=== PATIENT | female | born 1955 | race Caucasian/White ===

== ENCOUNTER 2017-07-06 13:59 | Inpatient (IN) | payer OTHER, MEDICARE ==
[~2017-07-06] VITALS: Ht 154.9 cm; Wt 77.3 kg
--- NOTE | ~2017-07-06 | HP ---
History And Physical [place] [id number] [facility] [place]. [address] NAME: SHANELL DAVILA : 57 STATUS : ADM IN [facility]#: [id number] AGE: 61 ADM/REG DATE : 07/06/17 MR#: [id number] REPORT SERV DATE: 07/09/17 DICTATED BY: GERTRUDE DOUGLAS DATE: 07/08/17 REPORT STATUS : Draft TRANSCRIBED BY: MODL DATE: 07/08/17 DATE OF ADMISSION: 07/06/2017 ADMISSION DIAGNOSIS: Acute stroke. HISTORY OF PRESENT ILLNESS: Mrs. Davila is a 61-year-old female with a past medical history of known atrial fibrillation, who presented to the emergency room with difficulty in speech. She was first seen by Neurology. With regard to the patient taking her medications, there is some discussion of whether she has full compliance. She does see our Cardiology team. Upon admission to the emergency room, she was noted to be hypertensive; however, CT scan did not show any acute hemorrhagic stroke and the patient received tPA. There was somewhat of a delay due to the patient's inability to speak and give a good history. However, by the time Critical Care saw the patient in the ER, the patient's symptoms have already begun to improve. There were no acute thrombotic findings on CTA. Otherwise, no further complaints. PAST MEDICAL HISTORY: Significant history for kidney transplantation, coronary artery disease, atrial fibrillation, hyperlipidemia, end-stage renal disease, sleep apnea, history of breast cancer, and reflux. MEDICATIONS: Medication list reviewed. Some of the patient's medications are aspirin, Coreg, and losartan. However, we are still trying to compile the rest of the patient's medication list as the patient cannot verbalize the list nor does her know. ALLERGIES: NO KNOWN DRUG ALLERGIES. SOCIAL HISTORY: The patient is currently , no significant recent smoking or drinking. FAMILY HISTORY: No significant family history that we are aware of at this moment in time. REVIEW OF SYSTEMS: All pertinent review of systems reviewed and is otherwise negative. PHYSICAL EXAMINATION: VITAL SIGNS: Blood pressure currently in the 180s, normal respiratory rate, oxygen saturation greater than 95% on room air. GENERAL: The patient is alert and oriented x1. Unable to give full speech. HEENT: No JVD noted. PULMONARY: Lungs are clear to auscultation bilaterally. CARDIAC: Heart rate regular, no murmurs heard. ABDOMEN: Soft, nontender, nondistended. EXTREMITIES: No cyanosis. Good pulses bilaterally. NEUROLOGIC: The patient is able to move upper and lower extremity against force. Sensation is intact. No cranial nerve abnormalities, other than an expressive aphasia. LABORATORY DATA: Laboratory examination has been reviewed. History And Physical [address] [place]. [address] NAME: SHANELL DAVILA : 57 STATUS : ADM IN PAT#: [id number] AGE: 61 ADM/REG DATE : 07/06/17 MR#: [id number] REPORT SERV DATE: 07/09/17 DICTATED BY: GERTRUDE DOUGLAS DATE: 07/08/17 REPORT STATUS : Draft TRANSCRIBED BY: MODUsha DATE: 07/08/17 RADIOLOGY STUDIES: CT scan showed no acute hemorrhagic stroke. MRI was done, which did not show any clot. However, there was an acute stroke in the left MCA. ASSESSMENT AND PLAN: Mrs. Davila is a 61-year-old female with a past medical history noted above, who has an acute stroke. 1. Acute left middle cerebral artery stroke and the history of atrial fibrillation. The patient has been given tPA and already neurological improvements have been noted. The patient will have evaluation by her rack carrier and service secretary along with Neurology on board. Treatment of her paroxysmal atrial fibrillation. Otherwise, we will follow the standard post stroke tPA order set. 2. Coronary artery disease: As noted above. 3. Atrial fibrillation, paroxysmal: As noted above. 4. Hyperlipidemia: As noted above. 5. FEN: The patient is currently n.p.o. 6. Disposition: The patient is to be transferred to the intensive care unit from the ER. HFQ/MODL Gertrude Douglas MD / [id number] CC: MD Will Dudley M.D.
--- NOTE | ~2017-07-06 | PRECARD ---
H&P [address] [place]. [address] NAME: SHANELL DAVILA : 57 STATUS : ADM IN [facility]#: [id number] AGE: 61 ADM/REG DATE : 07/06/17 MR#: [id number] REPORT SERV DATE: 07/06/17 DICTATED BY: EFRAIN BENITEZ DATE: 07/06/17 REPORT STATUS : Draft TRANSCRIBED BY: CAROLINE DATE: 07/06/17 DATE OF ADMISSION: 07/06/2017 HISTORY OF PRESENT ILLNESS: Ms. Hina Davila is a 61-year-old woman admitted with an acute left MCA stroke. Medical records are not yet available. Apparently, Ms. Davila follows Dr. Guzman with atrial fibrillation. She has had two renal transplants, the patient and family are uncertain the etiology of her renal failure. Today, she was doing well, at about 1215 hours today she developed expressive aphasia. Her head CT showed no acute stroke, her MRI showed an acute left MCA stroke. She did receive tPA perfusion therapy at 1520 hours. At this time, she is doing well. She denies any discomfort. Her expressive aphasia is slowly improving. The patient's is uncertain about history of atrial fibrillation on my questioning. The patient's denied history of hypertension, diabetes, heart failure, or prior stroke. PAST MEDICAL HISTORY: Renal transplant. MEDICINES: Epo injection, vitamin D, mycophenolate, sirolimus, carvedilol, torsemide, rosuvastatin, potassium, aspirin. FAMILY HISTORY: Difficult to obtain. SOCIAL HISTORY: Difficult to obtain. PHYSICAL EXAMINATION: VITAL SIGNS: Heart rate about 63, telemetry intermittent sinus rhythm. Pressures about 180/80. GENERAL: In no acute distress, she has expressive aphasia with right-sided facial droop. LUNGS: Clear with good breath sounds. CARDIOVASCULAR: No murmurs or rub. ABDOMEN: No obvious mass. EXTREMITIES: Have no edema. Telemetry demonstrates sinus rhythm. EKG, sinus rhythm without ischemia. BUN 46, creatinine 2.07, hematocrit 36%. ASSESSMENT: Ms. Davila is a 61-year-old woman with an acute stroke, treated with tPA reperfusion therapy. H&P [address] [place]. [address] NAME: SHANELL DAVILA : 57 STATUS : ADM IN PAT#: [id number] AGE: 61 ADM/REG DATE : 07/06/17 MR#: [id number] REPORT SERV DATE: 07/06/17 DICTATED BY: EFRAIN BENITEZ DATE: 07/06/17 REPORT STATUS : Draft TRANSCRIBED BY: CAROLINE DATE: 07/06/17 There is reported history of atrial fibrillation, but no definite history of diabetes, prior stroke, or heart failure. I presume she has hypertension given her two renal transplants and a current blood pressure, with atrial fibrillation, hypertension, and female gender certainly with a stroke, she would be a candidate for long-term anticoagulation. I will discuss with Neurology team when to begin oral anticoagulant in the best approach, be that DOAC or warfarin anticoagulation. I will obtain echocardiogram as well to look for valvular heart disease. ELIESER/CAROLINE Efrain Benitez M.D. / [id number] CC: Gertrude Douglas MD
--- NOTE | ~2017-07-06 | DS ---
Discharge Summary [facility] [address] [place]. [address] NAME: SHANELL LUIS : 57 STATUS : DIS IN PAT#: [id number] AGE: 61 ADM/REG DATE : 07/06/17 MR#: [id number] REPORT SERV DATE: 07/11/17 DICTATED BY: AMY CEDILLO DATE: 07/10/17 REPORT STATUS : Draft TRANSCRIBED BY: CAROLINE DATE: 07/10/17 ADMISSION DATE: 07/06/2017 DISCHARGE DATE: 07/10/2017 DISCHARGE DIAGNOSES: 1. Left middle cerebral artery cerebrovascular accident, status post tPA without deficits. 2. Paroxysmal atrial fibrillation. 3. Hypertension. 4. Chronic kidney disease, stage III. 5. Anemia of chronic kidney disease. 6. Chronic immunosuppression, status post renal transplant. 7. Coronary artery disease. 8. Diabetes type 2 with a hemoglobin A1c of 7.3. DISCHARGE MEDICATIONS: Include: 1. Norvasc 5 mg p.o. daily. 2. Eliquis 5 mg p.o. b.i.d. 3. Lipitor 80 mg at bedtime. 4. Carvedilol 25 mg p.o. b.i.d. 5. Cozaar 100 mg p.o. daily. 6. Mycophenolate 180 mg p.o. b.i.d. 7. Protonix 40 mg p.o. daily. 8. Sirolimus 0.5 mg p.o. q.48 hours. 9. Tylenol 1000 mg p.o. q.6 hours p.r.n. pain. 10.Ventolin HFA one to two puffs inhaled q.4 h. p.r.n. 11.Demadex 20 mg p.o. daily p.r.n. edema, hold for the next 48 hours. 12.Procrit 70686 units subcu every 28 days. 13.Vitamin D 1000 units p.o. daily. DISPOSITION AND FOLLOWUP: The patient medically stable for discharge. Follow up with primary care physician in one week. The patient on control for diabetes with diet and exercise. Hemoglobin A1c of 7.3. On followup, may discuss adding oral antihyperglycemic versus lifestyle modification. Follow up with Neurology and Nephrology as directed. Instructed to hold any diuretics for the next 48 hours. On followup with primary care physician, can recheck renal function for stability. HISTORY AND PHYSICAL: Per initial assessment. DISCHARGE VITALS: Temperature 98.2, heart rate 73, blood pressure 127/58, respiratory rate 18, and O2 saturation 97 on room air. DISCHARGE LABS: WBC of 7.3, hemoglobin 10.4, hematocrit 33.3, and platelets 261. Sodium 139, potassium 3.6, chloride 106, bicarb 25, BUN 46, creatinine 1.89, glucose 150, and magnesium 1.8. Albumin 3. Troponin 0.02. IMAGING: Per system, carotid Dopplers, no significant carotid stenosis. 2D echo, Discharge Summary [place] [id number] [place]. [address] NAME: SHANELL LUIS : 57 STATUS : DIS IN PAT#: [id number] AGE: 61 ADM/REG DATE : 07/06/17 MR#: [id number] REPORT SERV DATE: 07/11/17 DICTATED BY: AMY CEDILLO DATE: 07/10/17 REPORT STATUS : Draft TRANSCRIBED BY: CAROLINE DATE: 07/10/17 impression, normal LV size with preserved EF, greater than 60. Normal diastolic function. Normal RV size and systolic function. No significant valve disease. The patient had evidence of late positive bubble study occurring with Valsalva. One or two bubbles can be seen in the left ventricle. Six beats after bubbles initially entered the atria consistent with extracardiac shunt. Frequently, this is seen with pulmonary AVMs. There is no evidence of intracardiac shunt. No evidence of pleural effusion. No pericardial effusion. HOSPITAL COURSE: A 61-year-old woman with past medical history of atrial fibrillation, comes into the ED with difficulty in speech. CT was done that did not show any acute hemorrhagic stroke. The patient received tPA. Symptoms resolved after tPA. The patient was monitored closely post tPA infusion. Stroke order set was used for admission, evaluated by Speech, PT/OT, all ancillary services for orders stroke set. Neurology was consulted. Further details per consult note. Renal was consulted for acute on chronic kidney disease, more details per consult note. The patient was placed on Eliquis during admission for secondary prevention. She was also started on Lipitor, losartan, and Norvasc for blood pressure control. The patient will be instructed to hold diuretics for the next 24 hours and then she can resume. The patient's renal function very close to baseline. On followup with primary care physician, would recheck a renal function and consider starting oral antihyperglycemic versus lifestyle modification trial to get hemoglobin A1c of less than 7. The patient instructed to take all medications as directed. Follow up with consultants as directed and primary care physician in one week. Total time for discharge planning 35 minutes. RANJANA/CAROLINE Emeka Conklin MD / [id number] CC: MD Will Del Rosario M.D.
--- NOTE | ~2017-07-06 | CN ---
Consultation Report [facility] [address] [place]. [address] NAME: SHANELL LUIS : 57 STATUS : ADM IN PAT#: [id number] AGE: 61 ADM/REG DATE : 07/06/17 MR#: [id number] REPORT SERV DATE: 07/07/17 DICTATED BY: JUVENTINO GUALLPA DATE: 07/06/17 REPORT STATUS : Draft TRANSCRIBED BY: MODL DATE: 07/06/17 NEPHROLOGY CONSULT DATE OF CONSULTATION: 07/06/2017 CHIEF COMPLAINT: CVA, kidney transplant. HISTORY OF PRESENT ILLNESS: The patient is a 61-year-old white female with significant past medical history of donor renal transplant, stage 3 CKD (creatinine 1.3), hypertension, and diabetes, presented with aphasia. The patient had a negative head CT scan, but MRI revealed a CVA in the left MCA distribution. Code stroke was called. Neurology was evaluated the patient, and the patient was given tPA with clinical improvement per neurologist. Cardiology is seen with a history of possible atrial fibrillation. Creatinine was noted to be 2.07 on presentation. The patient's baseline creatinine in 2016 was 1.3. PAST MEDICAL HISTORY/PAST SURGICAL HISTORY: 1. Kidney transplant x2, stage 3 CKD with baseline creatinine of 1.3 in 2016. 2. Hypertension. 3. Diabetes. 4. Recurrent urinary tract infections. 5. Atrial fibrillation. She was noted to have this in 2012, converted spontaneously to normal sinus rhythm. SOCIAL HISTORY: Complete review of systems unobtainable with current symptoms of strokes. FAMILY MEDICAL HISTORY: Complete review of systems unobtainable with current symptoms of strokes. REVIEW OF SYSTEMS: Complete review of systems unobtainable with current symptoms of strokes. ALLERGIES: IV DYE. MEDICATIONS: Home medications are unclear at this time, but it appears that she is on torsemide, losartan, sirolimus, and Myfortic. PHYSICAL EXAMINATION: VITAL SIGNS: Temperature is 97, pulse is 69, and blood pressure is 157/63. GENERAL: No apparent distress. SKIN: No petechiae or purpura. NEURO: She is alert, tracks. Moves all 4 extremities. Follows commands. Preservation. HEENT: Normocephalic. Consultation Report [place] [id number] [place]. [address] NAME: SHANELL LUIS : 57 STATUS : ADM IN PAT#: [id number] AGE: 61 ADM/REG DATE : 07/06/17 MR#: [id number] REPORT SERV DATE: 07/07/17 DICTATED BY: JUVENTINO GUALLPA DATE: 07/06/17 REPORT STATUS : Draft TRANSCRIBED BY: CAROLINE DATE: 07/06/17 NECK: No JVP. Trachea is midline. CARDIOVASCULAR: Regular rate and rhythm. No gallops, rubs, or murmurs. RESPIRATORY: Clear to auscultation bilaterally. ABDOMEN: Soft, nontender, and nondistended. Positive bowel sounds. EXTREMITIES: No peripheral edema. LABORATORY DATA: Creatinine is 2.07, potassium is 3.9, sodium is 139, CO2 is 21, BUN is 46, and glucose is 162. White blood cell count is 4.8, hemoglobin is 11.1, and platelets are 220. IMAGING: As noted above. ASSESSMENT: 1. Acute left middle cerebral artery cerebrovascular accident, status post tPA. 2. Kidney transplant x2, followed by Dr. Quevedo. 3. Hypertension and coronary artery disease. 4. Cerebrovascular accident. 5. Stage 3 chronic kidney disease. 6. Anemia of chronic kidney disease. 7. History of diabetes? PLAN: 1. Solu-Medrol IV 25 mg daily. 2. When the patient is able to tolerate p.o., we will resume her outpatient immunosuppression. 3. Review outpatient records in the a.. SGG/ASHLEYL Juventino Guallpa M.D. / [id number] CC: Gertrude Douglas MD UNKNOWN
--- NOTE | ~2017-07-06 | CN ---
Consultation Report [facility] [address] [place]. [address] NAME: SHANELL LUIS : 57 STATUS : ADM IN PAT#: [id number] AGE: 61 ADM/REG DATE : 07/06/17 MR#: [id number] REPORT SERV DATE: 07/07/17 DICTATED BY: BENNY PHILIP DATE: 07/06/17 REPORT STATUS : Draft TRANSCRIBED BY: MODUsha DATE: 07/06/17 CODE STROKE EMERGENCY NEUROLOGICAL CONSULTATION DATE OF CONSULTATION: 07/06/2017 HISTORY OF PRESENT ILLNESS: This is a 61-year-old female with a history of atrial fibrillation who presented to the emergency room approximately two and a half hours after the onset of symptoms of difficulty with her speech. The speech problems were observed when the family returned with lunch and noted the patient was not able to form sentences or answer intelligibly; she was repeating herself. The patient does not have any prior history of CVA or TIA. The patient's who is present at her bedside was a very poor historian. He stated that the patient is on some type of blood thinner. There was a delay in obtaining the information from the patient's geriatric psychiatrist, Dr. Guzman's office. The patient's blood pressure running over 185 systolic and reluctance of the patient's to give permission for tPA delayed the administration of tPA beyond 60 minutes. The patient's NIH stroke scale on evaluation in the emergency room was 5. She has expressive and receptive aphasia, had no motor deficits, questionable facial weakness which improved gradually, and questionable right arm weakness which was not detected on my evaluation in the CT scanner. The code stroke protocol was followed. The patient was taken for a CT of the head and CTA of the neck and brain. The CT of the head showed no evidence of acute changes, moderate atrophy especially in the frontal regions was noted. CTA could not be performed in view of the patient's creatinine being over 2. PAST MEDICAL HISTORY: The patient's past medical history is significant for history of kidney transplant, the first one in 1990, the second one in 2001. The patient's elementary school counselor is Dr. Quevedo. The patient is being followed by Cardiology by Dr. Guzman. Information obtained from Dr. Guzman's office was helpful to provide us with past medical history. The patient has a history of paroxysmal atrial fibrillation, coronary artery disease, hypertension, mixed hyperlipidemia, sleep apnea, end-stage renal disease, history of breast cancer, and GERD. The patient is status post cadaveric renal transplantation. On the last echocardiogram which was obtained in 2012, the patient's ejection fraction was 55%. FAMILY HISTORY: The patient's was not able to provide us with the family history. There were no other family members. The patient has no children and the sister lives out of town. SOCIAL HISTORY: There is no history of smoking or alcohol use. MEDICATIONS: The patient's list of medicines from Dr. Guzman's office and physician, Will Nichols M.D., are aspirin 81 mg, Coreg 25 mg, losartan 100 mg, Rapamune 0.5-mg tablet, rosuvastatin 10 mg p.o., and torsemide at 20 mg p.o. daily. ALLERGIES: NO KNOWN ALLERGY. Consultation Report [address] [place]. [address] NAME: SHANELL LUIS : 57 STATUS : ADM IN [facility]#: [id number] AGE: 61 ADM/REG DATE : 07/06/17 MR#: [id number] REPORT SERV DATE: 07/07/17 DICTATED BY: BENNY PHILIP DATE: 07/06/17 REPORT STATUS : Draft TRANSCRIBED BY: CAROLINE DATE: 07/06/17 REVIEW OF SYSTEMS: As per patient's , the patient has been having a dry cough in the last week, and she had a cold with nasal congestion and some nocturnal coughing; however, no shortness of breath or chest pain were recorded. The patient's denied the patient having swelling in her legs. There is no history of recent hospitalization. No history of seizures. No history of previous stroke or TIA. PHYSICAL EXAMINATION: VITAL SIGNS: Patient's initial blood pressure was 188/70, pulse was 70, and respirations were 18. HEENT: Head and neck examination showed the head to be normocephalic. There was no evidence of trauma. Eye exam, sclerae were not icteric. Conjunctivae were pink. ENT exam, tongue was midline. No atrophy or fibrillations noted. Palate elevated symmetrically. NECK: Auscultation of the neck showed no evidence of bruits. There was no cervical lymphadenopathy and no thyromegaly noted. No bruits were noted on auscultation of her thyroid. CHEST: Symmetrical. LUNGS: Clear with slight expiratory wheezing. ABDOMEN: Soft and nontender. No organomegaly. SKIN: Mild discoloration of distal legs and hyperpigmented diffuse areas below the knees. EXTREMITIES: No clubbing or cyanosis. There was no peripheral edema. Peripheral pulses were intact. No significant other abnormalities were noted. The joints were normal. No swelling or redness observed. NEUROLOGICAL EXAM: Mental Status Exam: The patient had receptive and expressive aphasia. She had perseveration, would know her name, however, would repeat it constantly when asking other questions. Could not follow rib-gs-yjv-step commands, however, spontaneously moved her arms and legs. On examination, extraocular movements were full. Spontaneous eye movements were unimpaired. There was no dysconjugate gaze. Pupils were equal and reactive to light and accommodation, both 3 mm. Funduscopic exam was difficult to evaluate in view of patient not fixating her gaze. No facial asymmetry was noted on my examination, although as per the , the patient had mild facial droop at home which he stated cleared on arrival to the emergency room. Motor exam showed no evidence of pronator drift and the patient was able to sustain. Her upper and lower extremities, according to her NIH scale, the motor deficit was 0. Sensory exam was difficult to test, appeared to be intact bilaterally. There was no ataxia on [id number]. There was no truncal ataxia. IMAGING: CT scan of the head showed no evidence of bleeding or acute changes, frontal atrophy was noted. CTA could not be performed in view of patient's high creatinine, end- stage renal disease, and history of renal transplants. The decision was made to take the patient for acute MRI limited study which showed evidence of acute stroke in the left middle cerebral artery distribution and extending beyond the bronchi regions. There was no midline shift, no swelling noted, and no hemorrhage noted. Limited MRI study of [place] was done, and there was no clot proximally observed. Consultation Report [facility] [address] [place]. [address] NAME: SHANELL LUIS : 57 STATUS : ADM IN [facility]#: [id number] AGE: 61 ADM/REG DATE : 07/06/17 MR#: [id number] REPORT SERV DATE: 07/07/17 DICTATED BY: BENNY PHILIP DATE: 07/06/17 REPORT STATUS : Draft TRANSCRIBED BY: CAROLINE DATE: 07/06/17 Again, I discussed with the patient's the importance of prompt re-administration of tPA. The patient's was having difficulty making a decision initially, however, finally consented. TPA was given, the patient's blood pressure was below 180 systolic. The exclusion and inclusion criteria were reviewed prior. The patient was given a bolus of tPA according to stroke per tPA orders. The patient tolerated the procedure well. As mentioned above, the delay to administer tPA within one hour or less was secondary to the lack of proper information about whether the patient was on a blood thinner in which the patient's stated she was on a blood thinner, and obviously the question whether the patient was on the new anticoagulants, Eliquis or Xarelto, arose. That would exclude the patient from receiving a tPA. We were able to promptly obtain the information from her geriatric psychiatrist's office. The patient's had difficulty making his decision whether to give permission to give tPA. The patient's blood pressure was fluctuating and was above 185. IMPRESSION: 1. Acute left MCA territory stroke probably of embolic origin. History of double transplant, the patient is on immunosuppressive medications, no prior history of stroke or TIA as per the patient's (who is a poor historian). No information was available otherwise. 2. History of coronary artery disease, the patient is followed by Dr. Guzman. 3. Hyperlipidemia. 4. Sleep apnea. 5. History of paroxysmal atrial fibrillation, the patient appears to be just on the aspirin. PLAN: Follow post tPA orders. The patient will be admitted to the CCU for close monitoring. Follow post tPA protocol. Stroke education to be provided to the patient and her and an echocardiogram. We will inform the patient's geriatric psychiatrist and elementary school counselor of the patient's admission. FAMILIA/CAROLINE Benny Philip MD / [id number]
[~2017-07-06 13:59] MED LIST: ACET500CAP PO; ALTA5 PO; AMARYL2 PO; ASAB PO; CINNAMON PO; CIP5 PO; COREG12 PO; COREG25 PO; COZ50 PO; DEMA20 PO; FLAG500TAB PO; HALF81 PO; KLOR-CON M2020 MEQ PO; LIPITOR80 MG PO; LORTAB 5 PO; MYFORTIC360 MG PO; PRAVACHOL80 MG PO; PREV15 PO; PRILO PO; PRILOSEC40 MG PO; PROCRIT40 SC; RAPAMUNE PO; SLOW RELEASE IRON PO; VIB50 PO
[2017-07-06 14:29] LABS: BASOPHILS 0.4 %; BASOPHILS ABSOLUTE 0.02 10/3/uL (0.0-0.16); EOSINOPHILS 3.3 %; EOSINOPHILS ABSOLUTE 0.16 10/3/uL (0.0-0.53); ER CBC TAT 0 Hrs 03 Mins; HEMATOCRIT 36.1 % (36.0-48.0); HEMOGLOBIN 11.1 g/dL (12.0-16.0); IMMATURE GRANULOCYTES 0.4 %; IMMATURE GRANULOCYTES ABSOLUTE 0.02 10/3/uL (0.0-0.11); LYMPHOCYTES ABSOLUTE 1.49 10/3/uL (0.67-4.30); MEAN CORPUS HGB CONC 30.7 g/dL (32.0-36.0); MEAN CORPUSCULAR HEMOGLOB 26.4 pg (26.0-34.0); MEAN PLATELET VOLUME 9.3 fL (9.2-13.0); MONOCYTES ABSOLUTE 0.96 10/3/uL (0.21-1.20); NEUTROPHILS 44.9 %; NEUTROPHILS ABSOLUTE 2.15 10/3/uL (2.02-8.40); PLATELET COUNT 220 10/3/uL (150-400); RBC DISTRIBUTION WIDTH 16.4 % (12.0-16.0); WHITE BLOOD CELLS 4.8 10/3/uL (4.5-10.5)
[2017-07-06 14:33] LABS: MANUAL DIFF NO %
[2017-07-06 14:39] LABS: INTERNATIONAL NORMAL RATI 1.1 UNITS (-); PARTIAL THROMBO TIME 26.8 SEC (22.5-37.2); PROTIME (NOT ORD) 13.6 SEC (12.0-14.5)
[2017-07-06 14:48] LABS: A/G RATIO 0.7 (0.7-1.9); ALBUMIN 3.1 G/DL (3.5-5.0); ALKALINE PHOSPHATASE 100 U/L (45-117); BUN (BLOOD UREA NITROGEN) 46 MG/DL (6-23); CALCIUM, SERUM 8.7 MG/DL (8.5-10.4); CHLORIDE, SERUM 111 MMOL/L (96-112); CO2 (CARBON DIOXIDE) 21 MMOL/L (24-34); CREATININE 2.07 MG/DL (0.55-1.02); GFR AFRICAN AMERICAN 29 ML/MIN (>=60); GFR NON AFRICAN AMERICAN 25 ML/MIN (>=60); GLOBULIN 4.4 G/DL (2.5-4.1); GLUCOSE, SERUM 162 MG/DL (60-99); POTASSIUM, SERUM 3.9 MMOL/L (3.5-5.3); SGOT(AST) 34 U/L (5-40); SGPT(ALT) 28 U/L (5-65); SODIUM, SERUM 139 MMOL/L (135-148); TOTAL BILIRUBIN 0.6 MG/DL (0-1.2); TOTAL PROTEIN 7.5 G/DL (6.0-8.5); TROPONIN I <0.02 NG/ML (<0.05)
[2017-07-06] MEDS ORDERED: *UNABLE2 (15:10)
[2017-07-06] MEDS ORDERED: COREG (15:11)
[2017-07-06] MEDS ORDERED: POTASSIUM ER (15:11)
[2017-07-06] MEDS ORDERED: CRESTOR (15:12)
[2017-07-06] MEDS ORDERED: VENTOLIN (15:12)
[2017-07-06] MEDS ORDERED: LOSARTAN (15:13)
[2017-07-06] MEDS ORDERED: TORSEMIDE (15:13)
[2017-07-06] MEDS ORDERED: SIROLIMUS (15:14)
[2017-07-06] MEDS ORDERED: MYFORTIC (15:14)
[2017-07-06 18:57] LABS: CHOL/HDL RATIO(NOT ORDER) 4.8 (0-5); CHOLESTEROL 140 MG/DL (< 200); HDL CHOLESTEROL 29 MG/DL (> 49); LDL CHOLESTEROL 41 MG/DL (< 130); NON-HDL CHOLESTEROL 111 MG/DL (< 160); TRIGLYCERIDE 353 MG/DL (< 150)
[2017-07-06 19:32] LABS: HOMOCYSTEINE 19.1 UMOL/L (3.3-11.6); ULTRASENSITIVE TSH 0.612 MCIU/ML (0.358-3.740)
[2017-07-06 19:33] LABS: CPK 159 U/L (0-200); PHOSPHORUS, SERUM 2.9 MG/DL (2.5-4.5)
[2017-07-06 19:34] LABS: FOLATE 19.8 NG/ML (>5.2)
[2017-07-06 21:21] LABS: ALLENS TEST Pos; BE (BASE EXCESS) 8.4 MEQ/L (0 +/- 2.5); BIPAP 18/8 cm.H2O; CARBOXYHEMOGLOBIN 1.6 % (0-3); HCO3 (ACTUAL BICARBONATE) 43.3 MEQ/L (23-27); HEMOBLOGIN CONTENT 15.8 G/DL (12-16); INSTRUMENT SERIAL # 35151; METHEMOGLOBIN 0.6 % (0-3); O2 CONTENT 20.6 VOL% (18-24); OPERATOR ID 33214; PCO2 (CO2 TENSION) 129 MMHG (35-45); PO2 (O2 TENSION) 84 MMHG (79-93); PRESSURE SUPPORT 10 cm.H2O; SAMPLE Arterial; pH 7.14 (7.37-7.43)
[2017-07-07 02:15] LABS: CPK 142 U/L (0-200); TROPONIN I 0.03 NG/ML (<0.05)
[2017-07-07 02:19] LABS: CK-MB 1.4 NG/ML
[2017-07-07 11:30] LABS: CPK 124 U/L (0-200); TROPONIN I 0.02 NG/ML (<0.05)
[2017-07-07 11:31] LABS: CK-MB 1.2 NG/ML
[2017-07-07] MEDS ORDERED: COREG25 PO (13:36)
[2017-07-07] MEDS ORDERED: VENTOLIN HFA PO (13:36)
[2017-07-07] MEDS ORDERED: KDUR20 PO (13:36)
[2017-07-07] MEDS ORDERED: CRESTOR10 PO (13:36)
[2017-07-07] MEDS ORDERED: RAPAMUNE PO (13:37)
[2017-07-07] MEDS ORDERED: DEMA20 PO ×2 (13:37)
[2017-07-07] MEDS ORDERED: HALF81 PO (13:38)
[2017-07-07] MEDS ORDERED: MYFORTIC180 MG PO (13:38)
[2017-07-07] MEDS ORDERED: ACET500CAP PO (13:39)
[2017-07-07] MEDS ORDERED: PROCRIT SC (13:39)
[2017-07-07] MEDS ORDERED: VITAMIN D1000 UNI1 PO (13:40)
[2017-07-08 03:55] LABS: BASOPHILS 0.3 %; BASOPHILS ABSOLUTE 0.01 10/3/uL (0.0-0.16); EOSINOPHILS 0 %; HEMATOCRIT 34.8 % (36.0-48.0); HEMOGLOBIN 10.9 g/dL (12.0-16.0); IMMATURE GRANULOCYTES 0.3 %; IMMATURE GRANULOCYTES ABSOLUTE 0.01 10/3/uL (0.0-0.11); LYMPHOCYTES 26.2 %; LYMPHOCYTES ABSOLUTE 0.94 10/3/uL (0.67-4.30); MEAN CORPUS HGB CONC 31.3 g/dL (32.0-36.0); MEAN CORPUSCULAR HEMOGLOB 26.3 pg (26.0-34.0); MEAN CORPUSCULAR VOLUME 83.9 fL (80-100); MEAN PLATELET VOLUME 9.6 fL (9.2-13.0); MONOCYTES 6.4 %; MONOCYTES ABSOLUTE 0.23 10/3/uL (0.21-1.20); NEUTROPHILS 66.8 %; PLATELET COUNT 209 10/3/uL (150-400); RBC DISTRIBUTION WIDTH 15.9 % (12.0-16.0); RED CELL COUNT 4.15 10/6/uL (4.0-5.6); WHITE BLOOD CELLS 3.6 10/3/uL (4.5-10.5)
[2017-07-08 04:03] LABS: MANUAL DIFF NO %
[2017-07-08 04:14] LABS: CALCIUM, SERUM 9.2 MG/DL (8.5-10.4); CHLORIDE, SERUM 108 MMOL/L (96-112); CO2 (CARBON DIOXIDE) 20 MMOL/L (24-34); CREATININE 1.65 MG/DL (0.55-1.02); GFR AFRICAN AMERICAN 39 ML/MIN (>=60); GFR NON AFRICAN AMERICAN 33 ML/MIN (>=60); PHOSPHORUS, SERUM 2.1 MG/DL (2.5-4.5); POTASSIUM, SERUM 3.9 MMOL/L (3.5-5.3); SODIUM, SERUM 139 MMOL/L (135-148)
[2017-07-08 04:15] LABS: BUN (BLOOD UREA NITROGEN) 39 MG/DL (6-23); GLUCOSE, SERUM 232 MG/DL (60-99)
[2017-07-09 05:33] LABS: BASOPHILS 0.1 %; BASOPHILS ABSOLUTE 0.01 10/3/uL (0.0-0.16); EOSINOPHILS 0.3 %; EOSINOPHILS ABSOLUTE 0.02 10/3/uL (0.0-0.53); HEMATOCRIT 35.6 % (36.0-48.0); HEMOGLOBIN 11.2 g/dL (12.0-16.0); IMMATURE GRANULOCYTES 0.3 %; IMMATURE GRANULOCYTES ABSOLUTE 0.02 10/3/uL (0.0-0.11); LYMPHOCYTES 24.5 %; LYMPHOCYTES ABSOLUTE 1.93 10/3/uL (0.67-4.30); MANUAL DIFF NO %; MEAN CORPUS HGB CONC 31.5 g/dL (32.0-36.0); MEAN CORPUSCULAR HEMOGLOB 26.9 pg (26.0-34.0); MEAN CORPUSCULAR VOLUME 85.6 fL (80-100); MEAN PLATELET VOLUME 10.2 fL (9.2-13.0); MONOCYTES ABSOLUTE 1.18 10/3/uL (0.21-1.20); NEUTROPHILS 59.8 %; NEUTROPHILS ABSOLUTE 4.71 10/3/uL (2.02-8.40); PLATELET COUNT 283 10/3/uL (150-400); RED CELL COUNT 4.16 10/6/uL (4.0-5.6); WHITE BLOOD CELLS 7.9 10/3/uL (4.5-10.5)
[2017-07-09 05:48] LABS: CALCIUM, SERUM 9.4 MG/DL (8.5-10.4); CHLORIDE, SERUM 108 MMOL/L (96-112); CO2 (CARBON DIOXIDE) 22 MMOL/L (24-34); CREATININE 1.86 MG/DL (0.55-1.02); GFR AFRICAN AMERICAN 33 ML/MIN (>=60); GFR NON AFRICAN AMERICAN 29 ML/MIN (>=60); POTASSIUM, SERUM 3.5 MMOL/L (3.5-5.3); SODIUM, SERUM 141 MMOL/L (135-148)
[2017-07-09 05:49] LABS: BUN (BLOOD UREA NITROGEN) 43 MG/DL (6-23); GLUCOSE, SERUM 148 MG/DL (60-99)
[2017-07-09 15:26] LABS: PROTEIN C ACTIVITY 167 % (70-145); PROTEIN S ACTIVITY 100 % (59-153)
[2017-07-10 05:58] LABS: BASOPHILS 0.3 %; BASOPHILS ABSOLUTE 0.02 10/3/uL (0.0-0.16); EOSINOPHILS 1.2 %; EOSINOPHILS ABSOLUTE 0.09 10/3/uL (0.0-0.53); HEMATOCRIT 33.3 % (36.0-48.0); HEMOGLOBIN 10.4 g/dL (12.0-16.0); IMMATURE GRANULOCYTES 0.4 %; IMMATURE GRANULOCYTES ABSOLUTE 0.03 10/3/uL (0.0-0.11); LYMPHOCYTES 20.5 %; MANUAL DIFF NO %; MEAN CORPUS HGB CONC 31.2 g/dL (32.0-36.0); MEAN CORPUSCULAR HEMOGLOB 26.7 pg (26.0-34.0); MEAN CORPUSCULAR VOLUME 85.6 fL (80-100); MEAN PLATELET VOLUME 10.1 fL (9.2-13.0); MONOCYTES ABSOLUTE 1.17 10/3/uL (0.21-1.20); NEUTROPHILS 61.6 %; NEUTROPHILS ABSOLUTE 4.52 10/3/uL (2.02-8.40); PLATELET COUNT 261 10/3/uL (150-400); RBC DISTRIBUTION WIDTH 16.4 % (12.0-16.0); RED CELL COUNT 3.89 10/6/uL (4.0-5.6); WHITE BLOOD CELLS 7.3 10/3/uL (4.5-10.5)
[2017-07-10 06:06] LABS: BUN (BLOOD UREA NITROGEN) 46 MG/DL (6-23); CALCIUM, SERUM 9.3 MG/DL (8.5-10.4); CHLORIDE, SERUM 106 MMOL/L (96-112); CO2 (CARBON DIOXIDE) 25 MMOL/L (24-34); CREATININE 1.89 MG/DL (0.55-1.02); GFR AFRICAN AMERICAN 33 ML/MIN (>=60); GFR NON AFRICAN AMERICAN 28 ML/MIN (>=60); GLUCOSE, SERUM 150 MG/DL (60-99); PHOSPHORUS, SERUM 2.7 MG/DL (2.5-4.5); POTASSIUM, SERUM 3.6 MMOL/L (3.5-5.3); SODIUM, SERUM 139 MMOL/L (135-148)
[2017-07-10] MEDS ORDERED: NORV5 PO (14:21)
[2017-07-10] MEDS ORDERED: COZAAR100 MG PO (14:22)
[2017-07-10] MEDS ORDERED: ELIQUIS 5 MG TAB5 MG PO (14:22)
[2017-07-10] MEDS ORDERED: LIPITOR80 MG PO (14:23)
[2017-07-10] MEDS ORDERED: PROTONIX PO (14:23)
== END 2017-07-10 15:25 | disposition home or self-care (01) | DRG 62 ==
LOC: ENRESERV → ENRESERVTM → ENRESERVDT → ER 13:59 → CCU 16:42 → ENPENDDIS 16:42 → 1SO 16:42
PROVIDERS: Internal Medicine; Internal Medicine Critical Care Medicine; Student in an Organized Health Care Education/Training Program
DX: I63.9 Cerebral infarction, unspecified (principal); Z94.0 Kidney transplant status; N17.9 Acute kidney failure, unspecified; E11.22 Type 2 diabetes mellitus with diabetic chronic kidney disease; E11.65 Type 2 diabetes mellitus with hyperglycemia; N18.3 Chronic kidney disease, stage 3 (moderate); I12.9 Hypertensive chronic kidney disease with stage 1 through stage 4 chronic kidney disease, or unspecified chronic kidney disease; I48.0 Paroxysmal atrial fibrillation; R47.01 Aphasia; R29.705 NIHSS score 5; I25.10 Atherosclerotic heart disease of native coronary artery without angina pectoris; G47.33 Obstructive sleep apnea (adult) (pediatric); D63.1 Anemia in chronic kidney disease; E78.5 Hyperlipidemia, unspecified; K21.9 Gastro-esophageal reflux disease without esophagitis; Z79.82 Long term (current) use of aspirin; Z79.899 Other long term (current) drug therapy; Z85.3 Personal history of malignant neoplasm of breast
CPT/HCPCS: 36415; 70450; 70544; 70551-52; 71010; 80048; 80053; 80061; 80069; 81241; 82140; 82150; 82550; 82553; 82607; 82746; 82805; 82962; 83036; 83090; 83690; 83735; 84100; 84443; 84484; 85025; 85300; 85303; 85306; 85610; 85730; 86850; 86900; 86901; 87641; 92523-GN; 93005; 93306; 93880; 94640; 96365; 97165-GO; 99285; A9270-GY; G9162-CI-GN; G9163-CI-GN; G9164-CI-GN; J2920; J2997; J7520